=== PATIENT | male | born 1965 | race Hispanic/Latino ===

== ENCOUNTER 2018-04-09 12:50 | Emergency (ER) | payer BC, SELFPAY ==
[2018-04-09 13:22] LABS: #Eosinphils 0.1 thou/uL (0.0-0.7); #Lymphocytes 1.6 thou/uL (1.20-3.40); #Monocytes 0.7 thou/uL (0.11-0.59); #Neutrophils 6.9 thou/uL (1.40-6.50); %Basophils 0.4 % (0.0-1.0); %Eosinophils 0.6 % (0.0-10.0); %Lymphocytes 17.1 % (21.0-51.0); %Monocytes 7.3 % (0.0-10.0); %Neutrophils 74.6 % (42.0-75.0); Hemoglobin 14.9 g/dL (14.0-18.0); Mean Corpuscular HGB CONC 34.9 g/dL (32.0-36.0); Mean Corpuscular Hemoglobin 29.1 pg (27.0-31.0); Mean Corpuscular Volume 83.3 fL (78.0-98.0); Mean Platelet Volume 7.9 fL (7.4-10.4); Platelet Count 160 thou/uL (130-400); RBC Distribution Width 12.5 % (11.5-14.5); Red Blood Cell (RBC) Count 5.12 mill/uL (4.70-6.10); White Blood Cell (WBC) Count 9.3 thou/uL (4.8-10.8)
[2018-04-09 13:46] LABS: ALT (SGPT) 55 U/L (8-55); AST (SGOT) 48 U/L (5-34); Albumin 4.6 g/dL (3.5-5.0); Alkaline Phosphatase 70 U/L (40-150); Anion Gap 14 mmol/L (10-20); BUN (Urea Nitrogen) 9 mg/dL (8.4-25.7); Bilirubin, Total 0.6 mg/dL (0.2-1.2); CK (CPK) 1481 U/L (30-200); Calc. Creatinine Clearance 0 mL/min (70-130); Calcium 9.8 mg/dL (7.8-10.44); Carbon Dioxide 24 mmol/L (22-29); Chloride 101 mmol/L (98-107); Estimated GFR-MDRD Greater than 90; Globulin 3.3 g/dL (2.4-3.5); Glucose 148 mg/dL (70-105); Potassium 4.1 mmol/L (3.5-5.1); Protein, Total 7.9 g/dL (6.0-8.3); Sodium 135 mmol/L (136-145)
[2018-04-09 13:48] LABS: Troponin I Less than 0.010 ng/mL (< 0.028)
[2018-04-09] MEDS ORDERED: Aspirin 325 MG TAB ONE (13:49)
[2018-04-09 13:53] LABS: CKMB 8.9 ng/mL (0-6.6)
[2018-04-09] MEDS ORDERED: Ondansetron ODT 4 MG TAB ONE (14:15)
--- NOTE | 2018-04-09 14:31 | RAD ---
PORTABLE CHEST: History: Chest pain FINDINGS: Heart size appears slightly enlarged. There is some indistinctness along the left heart border. This could just represent epicardial fat pad, possibly some linear infiltrate is not excluded. No signs of failure. IMPRESSION: 1. Cardiomegaly. 2. Slight increased density along the left heart border. This could represent an epicardial fat pad o r some minimal lingular infiltrate. Clinical correlation recommended. No previous exams available for comparison. POS: [facility]ESSICA
== END 2018-04-09 15:56 | disposition home or self-care (01) ==
LOC: ERS 12:50
DX: M62.82 Rhabdomyolysis (principal); I10 Essential (primary) hypertension; R07.9 Chest pain, unspecified
CPT/HCPCS: 71045; 80053; 82550; 82553; 84484; 85025; 93005; 94760; 96360; Q0162

== ENCOUNTER 2020-05-20 14:13 | Outpatient (CLI) | payer OTHER ==
--- NOTE | 2020-05-20 16:49 | MRI ---
MRI OF THE RIGHT SHOULDER WITHOUT CONTRAST: 05/20/20 HISTORY: Dorsalgia. COMPARISON: None. FINDINGS: BICEPS TENDON: Mild increased extra-articular biceps tenosynovial fluid. LABRUM: Intact. ROTATOR CUFF: Some moderate 30-40% bursal surface partial tearing throughout the supraspinatus tendon. No full thic kness perforation. Some low grade hidden interstitial tears in the mid footprint. Mild infraspinatus tendinosis. BONES: Normal glenoid version. Normal appearance of the acromioclavicular joint for age. Mild lateral downsl oping of the acromion. SOFT TISSUES: Normal volume joint fluid. Axillary pouch is redundant although no edematous. IMPRESSION: 1. 30-40% bursal surface partial tearing throughout the supraspinatus tendon without full thickn ess perforation. 2. Mild lateral downsloping of the type II acromion. 3. Mild subcortical cyst just deep to the critical zone infraspinatus tendon indicating internal impingement. 4. Scattered small foci of hidden interstitial tears of the supraspinatus and infraspinatus tend ons. 5. Near complete atrophy of the infraspinatus and teres minor muscles as well as partial atrophy of the teres major and subscapularis muscles. Findings can be seen with brachial neuropathy, Parsona ge Joshi's syndrome. Brachial plexus injury is also a possibility. A cervical spine and brachial ple xus MRI may be beneficial. Dalila Jordan
--- NOTE | 2020-05-20 17:41 | MRI ---
MRI OF THE THORACIC SPINE WITHOUT CONTRAST: 05/20/20 INDICATIONS: Dorsalgia. Thoracic pain. FINDINGS: The thoracic vertebrae maintain normal height and alignment. Vertebral body signal is normal. There i s no evidence of edema or compression deformity. There are mild degenerative changes present. Very mi ld anterior wedging of several mid thoracic vertebrae which appear degenerative in nature. Anterior o steophytes. Mild degenerative disc changes. Mild disc bulge at T7-T8, T8-T9, and T9-T10. No impingement on the cord. No central canal or foramina l stenosis. Thoracic cord signal is normal. IMPRESSION: 1. There are mild to moderate degenerative changes of the thoracic spine as described. No eviden ce of thoracic vertebral body edema or acute compression. Mild disc bulge at T7-T8, T8-T9, and T9-T10 as noted above. 2. No evidence of acute process. POS: [facility]
== END 2020-05-20 14:14 | disposition home or self-care (01) ==
LOC: BICMRI 14:13
DX: M54.9 Dorsalgia, unspecified (principal); M62.830 Muscle spasm of back; M47.814 Spondylosis without myelopathy or radiculopathy, thoracic region; M48.8X4 Other specified spondylopathies, thoracic region; M75.101 Unspecified rotator cuff tear or rupture of right shoulder, not specified as traumatic; M67.813 Other specified disorders of tendon, right shoulder
CPT/HCPCS: 72146

== ENCOUNTER 2020-09-08 08:03 | Outpatient (CLI) | payer OTHER | END 2020-09-08 08:04 | disposition home or self-care (01) | LOC: BICULT 08:03 | PROVIDERS: ATTEND Family Medicine | DX: R10.84 Generalized abdominal pain (principal); K76.0 Fatty (change of) liver, not elsewhere classified | CPT/HCPCS: 93975 ==

== ENCOUNTER 2020-10-26 07:36 | Outpatient (CLI) | payer OTHER ==
[2020-10-26] MEDS ORDERED: Magnevist 469MG/ML 20 ML VIAL ONE ×2 (10:46)
== END 2020-10-26 07:37 | disposition home or self-care (01) ==
LOC: BICMRI 07:36
DX: G54.0 Brachial plexus disorders (principal); M62.511 Muscle wasting and atrophy, not elsewhere classified, right shoulder
CPT/HCPCS: 71552; 72141; A9579